=== PATIENT | male | born 1990 | race Hispanic/Latino ===

== ENCOUNTER 2017-11-20 22:36 | Inpatient (IN) | payer SELFPAY ==
[~2017-11-20 22:36] MED LIST: ISOVUE-370 76%-LOCM 1 ML ONE
[2017-11-20] MEDS ORDERED: Morphine 4 MG/ML VIAL ONE (22:44)
[2017-11-20 23:05] LABS: #Basophils 0.1 thou/uL (0.0-0.2); #Eosinphils 0.1 thou/uL (0.0-0.7); #Lymphocytes 2.3 thou/uL (1.20-3.40); #Monocytes 1.4 thou/uL (0.11-0.59); #Neutrophils 14.4 thou/uL (1.40-6.50); %Basophils 0.3 % (0.0-1.0); %Eosinophils 0.4 % (0.0-10.0); %Lymphocytes 12.7 % (21.0-51.0); %Monocytes 7.5 % (0.0-10.0); %Neutrophils 79.1 % (42.0-75.0); Hemoglobin 17.5 g/dL (14.0-18.0); Mean Corpuscular HGB CONC 34.8 g/dL (32.0-36.0); Mean Corpuscular Hemoglobin 30.9 pg (27.0-31.0); Mean Corpuscular Volume 88.7 fL (78.0-98.0); Platelet Count 234 thou/uL (130-400); RBC Distribution Width 11.3 % (11.5-14.5); Red Blood Cell (RBC) Count 5.67 mill/uL (4.70-6.10); White Blood Cell (WBC) Count 18.2 thou/uL (4.8-10.8)
[2017-11-20 23:19] LABS: ALT (SGPT) 193 U/L (8-55); AST (SGOT) 167 U/L (5-34); Albumin 4.7 g/dL (3.5-5.0); Alkaline Phosphatase 67 U/L (40-150); Anion Gap 15 mmol/L (10-20); BUN (Urea Nitrogen) 11 mg/dL (8.9-20.6); Bilirubin, Total 0.6 mg/dL (0.2-1.2); Calc. Creatinine Clearance 0 mL/min (70-130); Calcium 9.3 mg/dL (7.8-10.44); Carbon Dioxide 20 mmol/L (22-29); Chloride 105 mmol/L (98-107); Estimated GFR-MDRD Greater than 90; Globulin 3.5 g/dL (2.4-3.5); Glucose 108 mg/dL (70-105); Lipase 13 U/L (8-78); Potassium 3.3 mmol/L (3.5-5.1); Protein, Total 8.2 g/dL (6.0-8.3); Sodium 137 mmol/L (136-145)
--- NOTE | 2017-11-20 23:22 | RAD ---
PORTABLE FRONTAL CHEST RADIOGRAPH: 11/20/2017 HISTORY: Injury. Trauma. Pain. COMPARISON: None. FINDINGS: The lungs are clear. The heart and mediastinal contour is unremarkable. IMPRESSION: No acute findings. POS: [facility]
--- NOTE | 2017-11-20 23:29 | CT ---
CT CERVICAL SPINE: 11/20/2017 HISTORY: Injury. Trauma. Pain. COMPARISON: None. TECHNIQUE: Serial axial CT imaging, at 2.5 mm intervals, from the skull base through the lung apices, with coron al and sagittal reformatted imaging. FINDINGS: The atlantoaxial interspace, the craniocervical junction, the cervicothoracic junction, the occipital condyles, the dens, and the C1-2 articulation appear within normal limits. The imaged lung apices are unremarkable. No anterolisthesis or retrolisthesis. No prevertebral soft tissue swelling, fracture, or dislocation . IMPRESSION: No acute findings. Results called to Dr. Sena at 11:08 p.m. on 11/20/2017. CODE CR POS: [facility]
--- NOTE | 2017-11-20 23:32 | CT ---
CT HEAD: 11/20/2017 HISTORY: Injury. Trauma. Pain. COMPARISON: None. TECHNIQUE: Serial axial CT imaging at 5 mm intervals, from the vertex through the skull base, without contrast. FINDINGS: There is partial opacification of the frontal sinus on the right, the bilateral ethmoid air cells, ri ght greater than left, the bilateral sphenoid sinuses, right greater than left, and the bilateral max illary sinuses, right greater than left. There is no intracranial hemorrhage, midline shift or mass effect. No ventricular enlargement. No d isplaced calvarial fracture. IMPRESSION: Paranasal sinus disease. No displaced calvarial fracture or intracranial hemorrhage. Results called to Dr. Sena at 11:10 p.m. on 11/20/2017. CODE CR POS: [facility]
--- NOTE | 2017-11-20 23:43 | CT ---
CT CHEST AND ABDOMEN AND PELVIS AND THORACIC SPINE AND LUMBAR SPINE: 11/20/2017 HISTORY: Injury. Trauma. Pain. COMPARISON: None. TECHNIQUE: Serial axial CT imaging is obtained at 5 mm intervals, from the thoracic inlet through the pubic symp hysis, with IV contrast. Coronal and sagittal reformatted imaging obtained. FINDINGS: No lymphadenopathy is noted within the chest. No pleural, pericardial, or mediastinal fluid is noted . The vascular structures of the chest appear patent. There is no pulmonary parenchymal abnormality on either side. No pneumothorax is seen. Review of the extraspinal osseous structures of the chest demonstrates no acute findings. No free intraperitoneal air. No discrete hepatic laceration is seen. The spleen appears grossly unremarkable. The gallbladder, p ancreas, and left adrenal gland appear unremarkable. No renal laceration is seen on either side. There is a round mass within the left adrenal gland, with Hounsfield units of 65-70, measuring 4 mm. There is adjacent hyperdense fluid posterior to the IVC, extending into Hanson's pouch, medial to the right lobe of the liver and abutting the superior and mid portion of the right kidney, suggesting associated hemorrhage. This suggests adrenal hemorrhage with adjacent blood within the Hanson srini ch. Limited assessment of the bowel demonstrates no acute abnormality. The vascular structures of the ab domen and pelvis appear unremarkable, and no lymphadenopathy is seen in the abdomen or pelvis. There is mild increased density within the fat, anterior to the right hip, which may signify direct contus ion. Review of the osseous structures of the abdomen and pelvis demonstrate no widening of the pubic symph ysis or sacroiliac joints. No sacral fracture is seen. Neither hip appears dislocated. THORACIC SPINE: Normal vertebral body height and alignment, with no evidence for fracture or disloca tion. LUMBAR SPINE: Normal vertebral body height and alignment with no evidence for fracture or dislocatio n. IMPRESSION: A 4.1 cm, hyperdense mass of the right adrenal gland suggests an acute adrenal hematoma, with adjacen t blood within the Hanson pouch. Recommend follow-up CT examination on a short-term basis. Results discussed with Dr. Sena at 11:15 p.m. on 11/20/2017. CODE CR POS: [facility]
--- NOTE | 2017-11-20 23:50 | RAD ---
KUB: 11/20/2017 HISTORY: Injury. Trauma. Pain. COMPARISON: None. FINDINGS: The femoral heads project normally over their respected acetabulum. There is no widening of the sacr oiliac joints or pubic symphysis. The pelvic ring appears intact. IMPRESSION: No acute findings. POS: [facility]
[2017-11-21 00:17] LABS: Troponin I Less than 0.010 ng/mL (< 0.028)
[2017-11-21] MEDS ORDERED: HYDROmorphone 0.5 MG/0.5 ML SYRINGE ONE (00:35)
--- NOTE | 2017-11-21 01:31 | HP ---
DATE OF ADMISSION 11/21/2017 REQUESTING PHYSICIAN: Brianda Sena MD ATTENDING SURGEON: Dr. Luna. CONSULTATIONS: None. HISTORY OF PRESENT ILLNESS: The patient is a 27-year-old man, who was riding a horse this e vening when he was thrown from the horse, landing on his right side. The patient laid there for jerald ral minutes, was continuing to have significant pain. So, after a short period of time, his friends called an ambulance, he was brought to the Emergency Department and underwent evaluation and examinat ion. He was noted to have a contusion to his right adrenal injury, at which time, we were asked to e valuate the patient for admission. The patient denied loss of consciousness and witnesses confirm th is. PHYSICAL EXAMINATION: VITAL SIGNS: Blood pressure 128/78, heart rate 82, respirations 25, oxygen saturation 100% on room a ir, temperature is 98.3. GENERAL: The patient is resting comfortably in ER bed. He is awake, alert, and oriented x3. Glasgo w coma scale is 15. HEENT: Head is normocephalic, atraumatic. Eyes, extraocular motion intact. PERRLA bilaterally. Ea rs are atraumatic without discharge. Nose is atraumatic without discharge. Oropharynx is clear. NECK: Nontender. Trachea is midline. No JVD. CHEST: Clear to auscultation with moderate inspiratory and expiratory effort. The patient states th at he has significant back pain with deep inspiration. ABDOMEN: Soft with slight amount of distention that the patient describes as his normal abdomen. Th ere are no peritoneal signs. PELVIS: Stable. EXTREMITIES: Neurovascularly intact x4. Capillary refill is less than 3 seconds. Pulses are 2+. BACK: Nontender to the midline, but significantly tender to the right and somewhat left CVA area. LABORATORY FINDINGS: White blood cell count 18.2, hemoglobin 17.5, hematocrit 50.3, platelets 234. Sodium 137, potassium 3.3, chloride 105, CO2 of 20, BUN 11, creatinine 0.93, glucose 108, total bilir ubin 0.6, AST 167, ALT 193, alkaline phosphatase 67, lipase 13. Urinalysis is pending. RADIOGRAPHIC REPORTS: AP chest shows no acute findings. AP pelvis shows no acute findings. CT of t he brain without contrast shows no displaced calvarial fracture or intracranial hemorrhage. CT of th e C-spine without contrast shows no acute findings. CT of the chest, abdomen, and pelvis with IV con trast shows a 4.1-cm hyperdense mass of the right adrenal gland suggesting an acute adrenal hematoma with adjacent blood within Morison's pouch. ASSESSMENT: 1. Status post ejection from livestock. 2. Right adrenal hematoma. 3. Acute pain secondary to trauma. PLAN: Plan will be to admit the patient to the surgical floor. He will have IV pain medication, mad e n.p.o., pulmonary toilet, gastritis and mechanical VTE prophylaxis. The patient will have serial h emoglobin and hematocrits done throughout the night. We will reevaluate the patient in the morning. The evaluation, examination, laboratory and radiographic findings will be discussed with Dr. Jeremy sierra fter this dictation.
[2017-11-21] MEDS ORDERED: Ondansetron ODT 4 MG TAB PO PRN (02:52)
[2017-11-21] MEDS ORDERED: Dextrose 5% in Water 1,000 ML IV PRN (02:52)
[2017-11-21] MEDS ORDERED: hydrALAZINE 20 MG/ML VIAL SLOW IVP PRN (02:52)
[2017-11-21] MEDS ORDERED: Sodium Chloride 0.9% 1,000 ML IV SCH (02:52)
[2017-11-21] MEDS ORDERED: Promethazine HCl 25 MG/ML VIAL IM PRN ×2 (02:52)
[2017-11-21] MEDS ORDERED: Ondansetron HCl/PF 4 MG/2 ML Vial IVP PRN (02:52)
[2017-11-21] MEDS ORDERED: Morphine 4 MG/ML VIAL IV PRN (02:52)
[2017-11-21] MEDS ORDERED: Dextrose 50% Abboject 50 ML SYRINGE SLOW IVP PRN ×2 (02:52)
[2017-11-21 02:58] VITALS: BMI 32.8
[2017-11-21] MEDS: Morphine 4 MG/ML VIAL IV PRN ×2 (03:09→06:44)
[2017-11-21 03:26] LABS: #Lymphocytes 2.1 thou/uL (1.20-3.40); #Neutrophils 10.5 thou/uL (1.40-6.50); %Basophils 0.2 % (0.0-1.0); %Eosinophils 0.2 % (0.0-10.0); %Lymphocytes 15.3 % (21.0-51.0); %Monocytes 7.3 % (0.0-10.0); %Neutrophils 77.1 % (42.0-75.0); Hemoglobin 14.9 g/dL (14.0-18.0); Mean Corpuscular HGB CONC 34.5 g/dL (32.0-36.0); Mean Corpuscular Hemoglobin 30.8 pg (27.0-31.0); Mean Corpuscular Volume 89.4 fL (78.0-98.0); Mean Platelet Volume 7.8 fL (7.4-10.4); Platelet Count 205 thou/uL (130-400); RBC Distribution Width 11.1 % (11.5-14.5); Red Blood Cell (RBC) Count 4.82 mill/uL (4.70-6.10); White Blood Cell (WBC) Count 13.6 thou/uL (4.8-10.8)
[2017-11-21 03:46] LABS: Anion Gap 13 mmol/L (10-20); BUN (Urea Nitrogen) 9 mg/dL (8.9-20.6); Calc. Creatinine Clearance 199 mL/min (70-130); Calcium 8.3 mg/dL (7.8-10.44); Carbon Dioxide 21 mmol/L (22-29); Chloride 107 mmol/L (98-107); Estimated GFR-MDRD Greater than 90; Glucose 116 mg/dL (70-105); Lipase 7 U/L (8-78); Potassium 3.7 mmol/L (3.5-5.1); Sodium 137 mmol/L (136-145)
[2017-11-21 06:52] LABS: Bilirubin Negative (Negative); Blood, Urine Trace (Negative); Clarity CLEAR (Clear); Glucose, Urine (Dipstick) Negative (Negative); Leukocyte Negative (Negative); Nitrite Negative (Negative); Protein, Urine (Dipstick) Negative (Neg-Trace); Specific Gravity, Urine 1.027 (1.002-1.036); Urobilinogen 0.2 mg/dL (0.2-1.0)
[2017-11-21 06:54] LABS: Bacteria/HPF None Seen HPF (None Seen); Hyaline Casts/LPF 0-3 HYALINE CAST LPF (0-3 Hyaline); Squamous Epithelial None Seen HPF (0-3); WBC/HPF 0-3 HPF (0-3)
[2017-11-21] MEDS ORDERED: Acetaminophen 500 MG TAB PO PRN (08:52)
[2017-11-21] MEDS ORDERED: Ibuprofen 800 MG TAB PO PRN (08:52)
[2017-11-21] MEDS ORDERED: Famotidine 20 MG TAB PO SCH (09:00)
[2017-11-21 09:11] LABS: Hemoglobin 14.7 g/dL (14.0-18.0)
[2017-11-21 11:27] VITALS: BP 119/74; TEMP 98.1
--- NOTE | 2017-11-21 22:23 | DIS-2 ---
DATE OF ADMISSION: 11/20/2017 DATE OF DISCHARGE: 11/21/2017 RESIDENT: Sugar Dunne MD ADMITTING ATTENDING: Todd Luna DO DISCHARGE ATTENDING: John Juarez MD CONSULTATIONS: None. PROCEDURES: 1. Chest x-ray, which showed no acute findings. 2. Brain CT, which was significant for some paranasal sinus disease, but showed no evidence of calvarial fracture or intracranial hemorrhage. 3. Cervical spine CT, which showed no acute findings. 4. Chest, abdomen, and pelvis CT, which was significant for a 4.1-cm hyperdense mass of the right adrenal gland suggestive of an acute adrenal hematoma, with adjacent blood within the Morison pouch. 5. Pelvis x-ray, which showed no acute findings. PRIMARY DIAGNOSIS: Right adrenal hematoma. SECONDARY DIAGNOSIS: None. DISCHARGE MEDICATIONS: 1. Acetaminophen 1000 mg p.o. every 6 hours p.r.n. for pain. 2. Ibuprofen 800 mg every 8 hours p.r.n. for pain. DISCONTINUED MEDICATIONS: None. HOSPITAL COURSE: The patient is a 27-year-old gentleman with no significant past medical history, who presented to the [facility] Emergency Department after being thrown from a horse and landing on his right side. He had significant pain several minutes after the incident and decided to come to the Emergency Department for evaluation. On presentation to the Emergency Department, his vitals were noted to be within normal limits and his GCS score was 15. However, he was complaining of 10/10 pain on his right side and was therefore given 0.5 mg of Dilaudid, as well as 4 mg of morphine for his pain. He was also gives 2 liters of normal saline while in the ED. Initial blood work was obtained which was significant for an elevated white blood cell count of 18.2, a hemoglobin of 17.5, and a low serum potassium of 3.3. Several imaging studies were done, all of which were negative with the exception of his chest/ abd/pelvis CT which revealed a right adrenal hematoma. The Trauma Team was quickly consulted to come and evaluate the patient. On evaluation, the patient was noted to be resting comfortably and was awake and oriented with a GCS scale of 15. He had a slight amount of abdominal distention, but no peritoneal signs were present on exam. He was therefore admitted to the surgical floor for pain control and observation overnight. The following morning, routine lab work was repeated, which was significant for a slightly decreased white blood cell count of 13.6 and a hemoglobin of 14.9 around approximately 3:00 a.m. Around approximately 9:00 a.m., the patient had a repeat hemogram, which was significant for a Hgb of 14.7 which was basically unchanged from the previously measured Hgb. Also of note, a repeat BMP on the morning of discharge revealed that the patient's serum potassium had risen to be within normal limits at 3.7. Over the course of the morning, the patient was transitioned to p.o. only pain medication and stated that his pain was decently controlled. He was able to move around without difficulty and, after confirming his hemoglobin was stable, the patient was cleared for discharge home and told that he would be contacted after discharge regarding any necessary followup appointments. DISPOSITION: Stable. DISCHARGE INSTRUCTIONS: 1. Location: Home. 2. Diet: Regular diet. 3. Activity: As tolerated. 4. Followup: The patient was told that he will be contacted regarding any necessary followup appointments that needed to be made. PHILIPP
== END 2017-11-21 13:05 | disposition home or self-care (01) | DRG 645 ==
LOC: ERS 22:36 → 2SW 23:39 → UNDOADMOB 23:39 → SURG A 11-21 01:13
PROVIDERS: ADMIT Surgery; ATTEND Surgery
DX: S37.812A Contusion of adrenal gland, initial encounter (principal); V80.010A Animal-rider injured by fall from or being thrown from horse in noncollision accident, initial encounter
CPT/HCPCS: 36415; 70450; 71045; 71260; 72125; 72170; 74177; 80048; 80053; 81003; 81015; 82150; 83690; 84484; 85025; 86850; 86900; 86901; 90471; 90686; 96361; 96374; 96375; G0008; G0390; G8978-GP-CI; G8979-GP-CI; G8980-GP-CI; J1170; J2270